=== PATIENT | male | born 1985 | race Caucasian/White ===

== ENCOUNTER 2023-09-25 09:52 | Observation (INO) ==
[2023-09-25] MEDS: Morphine 4 MG/ML VIAL (1 ml) IV ONE (12:54)
[2023-09-25] MEDS: NS 0.9% 1000 ml BAG 1,000 ML IV ONE (12:54)
[2023-09-25] MEDS: Ondansetron 4 mg VIAL 2 MG/ML 2 ml VIAL IV ONE (12:54)
[2023-09-25] MEDS: Piperacillin/Tazobac 3.375 BAG 3.375 GM/100 ML BAG IV ONE (13:37)
[2023-09-25 13:47] LABS: Mean Corpuscular Hemoglobin 28.9 pg (27-33); Mean Corpuscular Volume 82.6 fL (80-97); Mean Platelet Volume 10.8 fL (7.5-11.2); Platelet Count 185 10^3/uL (150-450); Red Cell Distribution Width 13.7 % (12-17); White Blood Count 22.4 10^3/uL (3.6-10.2)
[2023-09-25 14:07] LABS: ABS Basophils 0.1 10^3/uL (0.0-0.1); ABS Eosinophils 0.1 10^3/uL (0.0-0.5); ABS Lymphocytes 1.5 10^3/uL (1.0-4.8); ABS Neutrophils 18.7 10^3/uL (1.5-7.6); Eosinophil % 0.6 %; Lymphocyte % 6.6 %
[2023-09-25 14:26] LABS: Albumin 4.2 g/dL (3.2-5.2); Albumin/Globulin Ratio 1.8 (1-3); Calcium 9.1 mg/dL (8.6-10.3); Creatinine, Serum 1.08 mg/dL (0.67-1.17); Globulin 2.4 g/dL (2-4); Total Bilirubin 0.9 mg/dL (0.2-1.0); Total Protein 6.6 g/dL (6.4-8.9)
[2023-09-25] MEDS: Acetaminophen IV 1 GM/100ML 1,000 MG/100 ML BAG IV ONE (15:49)
[2023-09-25] MEDS ORDERED: Ondansetron 4 mg VIAL 2 MG/ML 2 ml VIAL IV PRN (15:59)
[2023-09-25] MEDS: LACTATED RINGERS 1000 ML BAG IV SCH (16:04)
[2023-09-25] MEDS: ZOSYN 3.375 GM Q8H per EXTENDED INFUSION IV SCH ×2 (18:44→18:54)
[2023-09-25] MEDS: HYDROmorphone 1 MG/1 ML SYRINGE IV SLOW PU PRN (19:58)
[2023-09-25] MEDS: Pantoprazole VIAL 40 MG VIAL IV SCH (23:19)
[2023-09-26] MEDS ORDERED: fentaNYL 100 mcg/2 ml 50 MCG/ML VIAL IV PRN (16:05)
[2023-09-26] MEDS ORDERED: Naloxone 0.4 mg VIAL 0.4 mg/ml 1 ml VIAL IV PRN (16:05)
[2023-09-26] MEDS ORDERED: Bupivacaine 0.25% SDV 30 ML ONE (17:34)
[2023-09-26] MEDS ORDERED: Labetalol IV 5 MG/ML 20 ml VIAL ONE (17:54)
[2023-09-26] MEDS: Labetalol IV 5 MG/ML 20 ml VIAL IV PUSH ONE (17:55)
[2023-09-26] MEDS ORDERED: Lidocaine 2% PF 5 ML VIAL ONE (18:09)
[2023-09-26] MEDS ORDERED: Rocuronium 50 mg VIAL 10 mg/ml 5 ml VIAL (50 mg) ONE ×2 (18:09→19:42)
[2023-09-26] MEDS ORDERED: Midazolam 2 mg/2 ml VIAL 1 mg/ml 2 ml VIAL (2 mg) ONE (18:10)
[2023-09-26] MEDS ORDERED: fentaNYL 100 mcg/2 ml 50 MCG/ML VIAL ONE ×2 (18:10→19:03)
[2023-09-26] MEDS ORDERED: Sevoflurane BOTTLE ONE (18:36)
[2023-09-26] MEDS ORDERED: Dexamethasone IV 4 MG/ML VIAL 1 ml VIAL ONE (18:49)
[2023-09-26] MEDS ORDERED: ceFAZolin VIAL VIAL ONE (18:52)
[2023-09-26] MEDS ORDERED: ceFAZolin 1 GM ADVAN 1 GM ADDV.VIAL IVPB ONE (18:55)
[2023-09-26] MEDS ORDERED: Acetaminophen IV 1 GM/100ML 1,000 MG/100 ML BAG IV ONE (19:12)
[2023-09-26] MEDS ORDERED: Ondansetron 4 mg VIAL 2 MG/ML 2 ml VIAL ONE ×2 (19:43→21:14)
[2023-09-26] MEDS ORDERED: HYDROmorphone 0.5 MG/0.5 ML SYRINGE ONE (20:18)
[2023-09-26] MEDS: Ondansetron 4 mg VIAL 2 MG/ML 2 ml VIAL IV PRN (21:16)
[2023-09-27 06:28] LABS: ABS Basophils 0.1 10^3/uL (0.0-0.1); ABS Lymphocytes 1.3 10^3/uL (1.0-4.8); ABS Monocytes 1.2 10^3/uL (0.0-1.1); ABS Neutrophils 14.9 10^3/uL (1.5-7.6); ABS Nucleated RBC 0.01 10^3/ul; Hematocrit 37.2 % (38-53); Hemoglobin 12.7 g/dL (13.2-16.3); Lymphocyte % 7.5 %; Mean Corpuscular Hemoglobin 28.6 pg (27-33); Mean Corpuscular Hgb Conc 34.1 g/dL (31-36); Mean Corpuscular Volume 83.9 fL (80-97); Platelet Count 156 10^3/uL (150-450); Red Blood Count 4.44 10^6/uL (4.06-5.63); Red Cell Distribution Width 13.8 % (12-17); White Blood Count 17.5 10^3/uL (3.6-10.2)
[2023-09-27] MEDS: Labetalol IV 5 MG/ML 20 ml VIAL IV PUSH PRN (09:56)
[2023-09-27 11:04] VITALS: BP 170/108
== END 2023-09-27 12:00 | disposition home or self-care (01) ==
LOC: ED 09:52 → EDHOLD 09:52 → MED 16:28
PROVIDERS: ADMIT Surgery; ATTEND Surgery Surgical Critical Care